=== PATIENT | male | born 1995 | race Two or more races ===

== ENCOUNTER 2016-09-27 09:34 | Emergency (ER) | payer SELFPAY | END 2016-09-27 10:33 | disposition home or self-care (01) | LOC: ED 09:34 | DX: K04.7 Periapical abscess without sinus (principal); K03.81 Cracked tooth; Z86.14 Personal history of Methicillin resistant Staphylococcus aureus infection; Z79.899 Other long term (current) drug therapy ==

== ENCOUNTER 2016-09-29 14:23 | Emergency (ER) | payer SELFPAY | END 2016-09-29 15:48 | disposition home or self-care (01) | LOC: ED 14:23 | DX: K04.7 Periapical abscess without sinus (principal) ==